=== PATIENT | female | born 1975 | race Caucasian/White ===

== ENCOUNTER 2016-10-03 05:08 | Emergency (ER) | payer MEDICAID ==
[~2016-10-03] VITALS: Ht 160 cm; Wt 89.0 kg
[2016-10-03 05:37] VITALS: Ht 160 cm; Wt 89.0 kg
[2016-10-03 06:36] VITALS: BP 103/61; PULSE 54; RESP 18
--- NOTE | 2016-10-03 07:27 | ERD ---
ER Documentation Chief Complaint Date/Time DATE: 10/03/16 TIME: 07:23 Chief Complaint LUQ pain 20 min 04/29 dx'd w/gallstones HPI 40-year-old female with a history of gallstones presenting with right upper quadrant pain radiating to the right flank. She states she has had gallstone pain in the past that radiates down her right side of her abdomen, but she has never had it radiates to the back. She ate tacos before she went to bed and woke up a few hours later with severe right upper quadrant pain, stabbing, radiating to her back. She did not take any medications prior to arrival. She denies associated fever, chills, nausea, vomiting, chest pain, shortness of breath, dysuria or hematuria. At the time I saw the patient, she states that her pain has now self resolved. She is currently asymptomatic. I asked her if she has been referred to a surgeon yet by her primary care physician. She stated that she has been she does not know which surgeon. ROS All systems reviewed and are negative except as per history of present illness. Allergies Allergies: Coded Allergies: No Known Allergy (Unverified , 04/24/15) PMhx/Soc Medical and Surgical Hx: pt denies Surgical Hx History of Surgery: Yes (TUBAL LIGATION, APPENDECTOMY) Anesthesia Reaction: No Hx Neurological Disorder: No Hx Respiratory Disorders: No Hx Cardiac Disorders: Yes (dm) Hx Psychiatric Problems: No Hx Miscellaneous Medical Probl: Yes (KIDNEY STONES) Hx Alcohol Use: No Hx Substance Use: No Hx Tobacco Use: No Smoking Status: Never smoker FmHx Family History: No diabetes Physical Exam Vitals Vital Signs Date Time Temp Pulse Resp B/P Pulse Ox O2 Delivery O2 Flow Rate FiO2 10/03/16 06:36 54 18 103/61 99 Room Air 10/03/16 05:37 98.1 65 16 149/66 99 Physical Exam Const: Well-appearing, no distress, nontoxic Head: Atraumatic Eyes: Normal Conjunctiva ENT: Normal External Ears, Nose and Mouth. Neck: Full range of motion..~ No meningismus. Resp: Clear to auscultation bilaterally Cardio: Regular rate and rhythm, no murmurs Abd: Soft, non tender, negative Reed sign, non distended. Normal bowel sounds Skin: No petechiae or rashes Back: No midline or flank tenderness Ext: No cyanosis, or edema Neur: Awake and alert Psych: Normal Mood and Affect Procedures/MDM The patient is presenting with signs and symptoms of biliary colic. Her vitals are stable and she is afebrile. I have a low suspicion for an acute surgical abdomen. Currently she is completely nontender and well-appearing. She states this episode consistent with her normal gallbladder pain. I do not think she needs any further testing at this time. I encouraged her to follow-up with her primary care doctor in the morning to find out which surgeon she was referred to and to make an appointment as soon as possible to discuss elective cholecystectomy. Return precautions were discussed at length. Patient was discharged in stable condition. Departure Diagnosis: Primary Impression: Colic, biliary Condition: Stable Patient Instructions: Biliary Colic With Gallstone (Confirmed) Referrals: [facility] YOU HAVE RECEIVED A MEDICAL SCREENING EXAM AND THE RESULTS INDICATE THAT YOU DO NOT HAVE A CONDITION THAT REQUIRES URGENT TREATMENT IN THE EMERGENCY DEPARTMENT. FURTHER EVALUATION AND TREATMENT OF YOUR CONDITION CAN WAIT UNTIL YOU ARE SEEN IN YOUR DOCTORS OFFICE WITHIN THE NEXT 1-2 DAYS. IT IS YOUR RESPONSIBILITY TO MAKE AN APPOINTMENT FOR [facility]- CARE. IF YOU HAVE A PRIMARY DOCTOR --you should call your primary doctor and schedule an appointment IF YOU DO NOT HAVE A PRIMARY DOCTOR YOU CAN CALL OUR PHYSICIAN REFERRAL HOTLINE AT IF YOU CAN NOT AFFORD TO SEE A PHYSICIAN YOU CAN CHOSE FROM THE FOLLOWING [facility] CL[facility]ICS [facility] [address] [facility] [facility] [address] [facility] [address] [facility] [address] [facility]. [facility] [address] [facility]. [facility]. [address] Additional Instructions: Llame a arguello ico maana para saber que cirujano fueron referidos. Volver a la chelsea de emergencias si el dolor no mejora con ibuprofeno o si tiene fiebre y v mitos. JOHN KOHLI MD Oct 03, 2016 07:27
== END 2016-10-03 07:40 | disposition home or self-care (01) ==
LOC: E/R 05:08
DX: K80.50 Calculus of bile duct without cholangitis or cholecystitis without obstruction (principal); E11.9 Type 2 diabetes mellitus without complications
CPT/HCPCS: Z7502; Z7610; 99282

== ENCOUNTER 2016-11-15 23:51 | Emergency (ER) | payer MEDICAID ==
[~2016-11-15] VITALS: Ht 165.1 cm; Wt 88.5 kg
[2016-11-15 23:57] VITALS: Ht 165.1 cm; Wt 88.5 kg
[2016-11-16 00:16] LABS: URINE BLOOD (Dip) POC Negative (NEGATIVE)
--- NOTE | 2016-11-16 00:21 | ERA ---
ER Documentation Chief Complaint Date/Time DATE: 11/16/16 TIME: 00:20 Chief Complaint pt c/o gallstone pain worsening over 3 days HPI The patient is a 40-year-old female, presenting with epigastric and topical abdominal pain intermittently for the last 3 days after eating fatty meals. She had similar symptoms previously from gallbladder attack. She denies fever, chills, neck pain, chest pain, dyspnea. She complained of nausea and vomiting mostly mucus, denies diarrhea, constipation, dysuria, polyuria. She does not smoke, drink Past medical history: Cholelithiasis Past surgical history: Appendectomy, tubal ligation ROS All systems reviewed and are negative except as per history of present illness. Medications Home Meds Active Scripts Ibuprofen* (Motrin*) 600 Mg Tab, 600 MG PO Q6H Y for PAIN AND OR ELEVATED TEMP, #30 TAB Prov:SUNNY TREJO MD 11/16/16 Allergies Allergies: Coded Allergies: No Known Allergy (Unverified , 04/24/15) PMhx/Soc History of Surgery: Yes (TUBAL LIGATION, APPENDECTOMY) Anesthesia Reaction: No Hx Neurological Disorder: No Hx Respiratory Disorders: No Hx Cardiac Disorders: No Hx Psychiatric Problems: No Hx Miscellaneous Medical Probl: Yes (KIDNEY STONES) Hx Alcohol Use: No Hx Substance Use: No Hx Tobacco Use: No Smoking Status: Never smoker Physical Exam Vitals Vital Signs Date Time Temp Pulse Resp B/P Pulse Ox O2 Delivery O2 Flow Rate FiO2 11/16/16 02:45 56 18 125/73 99 Room Air 11/15/16 23:57 98.0 79 24 121/59 98 Physical Exam Const: No acute distress. Head: Atraumatic. Eyes: Normal Conjunctiva. ENT: Normal External Ears, Nose and Mouth. Neck: Full range of motion. No meningismus. Resp: Clear to auscultation bilaterally. Cardio: Regular rate and rhythm, no murmurs. Abd: Soft, non distended, normal bowel sounds, mild epigastric and right upper quadrant tenderness, no right lower quadrant, rigidity, rebound, CVA tenderness Skin: No petechiae or rashes. Back: No midline or flank tenderness. Ext: No cyanosis, or edema. Neur: Awake and alert. No focal deficit Psych: Normal Mood and Affect. Result Diagram: 11/16/163 11/16/16 0033 Results 24 hrs Laboratory Tests Test 11/16/16 00:17 11/16/16 00:33 Bedside Urine pH (LAB) 7.5 Bedside Urine Protein (LAB) Negative Bedside Urine Glucose (UA) Negative Bedside Urine Ketones (LAB) Negative Bedside Urine Blood Negative Bedside Urine Nitrite (LAB) Negative Bedside Urine Leukocyte Esterase (L Negative White Blood Count 10.210^3/ul Red Blood Count 3.7810^6/ul Hemoglobin 10.0g/dl Hematocrit 30.8% Mean Corpuscular Volume 81.5fl Mean Corpuscular Hemoglobin 26.5pg Mean Corpuscular Hemoglobin Concent 32.5g/dl Red Cell Distribution Width 14.3% Platelet Count 69277^3/UL Mean Platelet Volume 11.2fl Neutrophils % 73.7% Lymphocytes % 18.2% Monocytes % 5.4% Eosinophils % 2.2% Basophils % 0.3% Nucleated Red Blood Cells % 0.0/100WBC Neutrophils # 7.510^3/ul Lymphocytes # 1.910^3/ul Monocytes # 0.610^3/ul Eosinophils # 0.210^3/ul Basophils # 0.010^3/ul Nucleated Red Blood Cells # 0.010^3/ul Sodium Level 137mmol/L Potassium Level 3.6mmol/L Chloride Level 102mmol/L Carbon Dioxide Level 27mmol/L Anion Gap 12 Blood Urea Nitrogen 16mg/dl Creatinine 0.80mg/dl Glucose Level 149mg/dl Calcium Level 9.1mg/dl Total Bilirubin 0.1mg/dl Direct Bilirubin 0.00mg/dl Indirect Bilirubin 0.1mg/dl Aspartate Amino Transf (AST/SGOT) 129IU/L Alanine Aminotransferase (ALT/SGPT) 69IU/L Alkaline Phosphatase 94IU/L Total Protein 7.8g/dl Albumin 4.1g/dl Globulin 3.70g/dl Albumin/Globulin Ratio 1.10 Lipase 189U/L Current Medications Medications (Trade) Dose Ordered Sig/Billy Route PRN Reason Start Time Stop Time Status Last Admin Dose Admin Sodium Chloride (NS) 1,000 ml @ 1,000 mls/hr Q1H ONCE IV 11/16/16 01:30 11/16/16 02:29 DC 11/16/16 01:56 Morphine Sulfate (morphine) 4 mg ONCE STAT IV 11/16/16 01:24 11/16/16 01:26 DC 11/16/16 01:56 Ondansetron HCl (Zofran Inj) 4 mg ONCE STAT IV 11/16/16 01:24 11/16/16 01:26 DC 11/16/16 01:56 Pantoprazole (Protonix Iv) 40 mg ONCE ONCE IV 11/16/16 01:30 11/16/16 01:31 DC 11/16/16 01:56 Procedures/MDM MEDICAL MAKING DECISION: The patient is a 40-year-old female, presenting with acute biliary colic. She was treated 1 L normal saline for clinical dehydration , morphine 4 mg IV for pain, Zofran 4 mg for nausea, Protonix 40 mg IV with good response. The differential diagnoses considered include but are not limited to cholelithiasis, cholecystitis, cystitis, pancreatitis, hepatitis, gastritis, peptic ulcer disease, gastric ulcer, appendicitis, diverticulitis, cholangitis, choledocholithiasis, partial small bowel obstruction. Departure Diagnosis: Primary Impression: Colic, biliary Condition: Good Comments She was discharged with Motrin I discussed the findings with the patient. I advised the patient to follow-up with the primary physician in about 1-2 days for referral to see general surgery for elective cholecystectomy, sooner if needed and return if any concern. SUNNY TREJO MD Nov 16, 2016 00:21
[2016-11-16 00:34] LABS: ADD SCAN DIFF NO
[2016-11-16 00:36] LABS: BASOPHILS % 0.3 % (0.0-2.0); EOSINOPHILS # 0.2 10^3/ul (0.0-0.5); EOSINOPHILS % 2.2 % (0.0-7.0); HEMATOCRIT 30.8 % (37.0-47.0); LYMPHOCYTES # 1.9 10^3/ul (0.8-2.9); LYMPHOCYTES % 18.2 % (15.0-51.0); MEAN CORPUSCULAR HEMOGLOBIN 26.5 pg (29.0-33.0); MEAN CORPUSCULAR HGB CONC 32.5 g/dl (32.0-37.0); MEAN CORPUSCULAR VOLUME 81.5 fl (82.0-101.0); MEAN PLATELET VOLUME 11.2 fl (7.4-10.4); MONOCYTE # 0.6 10^3/ul (0.3-0.9); MONOCYTES % 5.4 % (0.0-11.0); NEUTROPHIL # 7.5 10^3/ul (1.6-7.5); NEUTROPHILS % 73.7 % (39.0-77.0); PLATELET COUNT 266 10^3/UL (140-415); RED BLOOD COUNT 3.78 10^6/ul (4.20-5.40); RED CELL DISTRIBUTION WIDTH 14.3 % (11.5-14.5); WHITE BLOOD COUNT 10.2 10^3/ul (4.8-10.8)
[2016-11-16 00:52] LABS: ALBUMIN 4.1 g/dl (3.3-4.9); ALBUMIN/GLOBULIN RATIO 1.1; BILIRUBIN,INDIRECT 0.1 mg/dl (0-1.1); BILIRUBIN,TOTAL 0.1 mg/dl (0.2-1.3); CALCIUM 9.1 mg/dl (8.4-10.2); CREATININE 0.8 mg/dl (0.44-1.00); POTASSIUM 3.6 mmol/L (3.5-5.1); TOTAL PROTEIN 7.8 g/dl (6.1-8.1)
[2016-11-16] MEDS ORDERED: morphine 4 MG/ML VIAL IV STA (01:24)
[2016-11-16] MEDS ORDERED: ONDANSETRON 4 MG INJ IV STA (01:24)
[2016-11-16] MEDS ORDERED: PANTOPRAZOLE 40 MG INJ IV ONE (01:30)
[2016-11-16] MEDS ORDERED: SOD CHLORIDE 0.9% 1,000 ML IV ONE (01:30)
[2016-11-16] MEDS ORDERED: IBUP-1542 PO (02:33)
[2016-11-16 02:45] VITALS: BP 125/73; PULSE 56; RESP 18
== END 2016-11-16 02:45 | disposition home or self-care (01) ==
LOC: E/R 23:51
DX: K80.51 Calculus of bile duct without cholangitis or cholecystitis with obstruction (principal); R11.2 Nausea with vomiting, unspecified; Z90.89 Acquired absence of other organs
CPT/HCPCS: 80053; 81003; 83690; 85025; C9113; J2270; J2405; J7030; 36415; 96374; 96375

== ENCOUNTER 2017-01-22 07:56 | Inpatient (IN) | payer MEDICAID ==
[~2017-01-22] VITALS: Ht 154.9 cm; Wt 90.7 kg
[~2017-01-22 07:56] MED LIST: IBUP-1542 PO
[2017-01-22] MEDS ORDERED: morphine 4 MG/ML VIAL IV STA (08:15)
[2017-01-22] MEDS ORDERED: ONDANSETRON 4 MG INJ IV STA (08:15)
[2017-01-22] MEDS ORDERED: SOD CHLORIDE 0.9% 1,000 ML IV STA (08:15)
--- NOTE | 2017-01-22 08:32 | ERD ---
ER Documentation Chief Complaint Date/Time DATE: 01/22/17 TIME: 08:28 Chief Complaint ap, hx gallstones HPI Patient is a 41-year-old female with a past medical history of gallstones, biliary colic, s/p appendectomy who presents to the emergency department with right upper quadrant pain which started last night after dinner. Patient describes the pain to be sharp and crampy in nature. Patient reports eating numerous fatty foods for dinner. Patient does report chills however she denies any fevers. Patient reports nausea and vomiting. Patient denies any dysuria, hematuria or vaginal bleeding. Patient states she has not seen a general surgeon yet. ROS All systems reviewed and are negative except as per history of present illness. Medications Home Meds Active Scripts Ibuprofen* (Motrin*) 600 Mg Tab, 600 MG PO Q6H Y for PAIN AND OR ELEVATED TEMP, #30 TAB Prov:SUNNY TREJO MD 11/16/16 Allergies Allergies: Coded Allergies: No Known Allergy (Unverified , 04/24/15) PMhx/Soc History of Surgery: Yes (TUBAL LIGATION, APPENDECTOMY) Anesthesia Reaction: No Hx Neurological Disorder: No Hx Respiratory Disorders: No Hx Cardiac Disorders: No Hx Psychiatric Problems: No Hx Miscellaneous Medical Probl: Yes (KIDNEY STONES) Hx Alcohol Use: No Hx Substance Use: No Hx Tobacco Use: No FmHx Family History: No diabetes Physical Exam Vitals Vital Signs Date Time Temp Pulse Resp B/P Pulse Ox O2 Delivery O2 Flow Rate FiO2 01/22/17 07:58 98.2 70 18 136/76 99 Physical Exam GENERAL: Well-developed, well-nourished female. Appears in no acute distress. HEAD: Normocephalic, atraumatic. EYES: Pupils are equally reactive bilaterally. EOMs grossly intact. No conjunctival erythema. ENT: Moist mucous membranes. No uvula deviation. No kissing tonsils. NECK: Supple. No meningismus. Normal range of motion of the neck. LUNG: Clear to auscultation bilaterally. No rhonchi, wheezing, rales or coarse breath sounds. HEART: Regular rate and rhythm. No murmurs, rubs or gallops. ABDOMEN: Soft and nondistended. Tender to palpation in the right upper quadrant. Positive bowel sounds in all four quadrants. No rebound tenderness, no guarding. (-) McBurney's point tenderness. No CVA tenderness. EXTREMITIES: Equal pulses bilaterally. No peripheral clubbing, cyanosis or edema. No unilateral leg swelling. NEUROLOGIC: Alert and oriented. Moving all four extremities without any difficulty. Normal speech. Steady gait. SKIN: Normal color. Warm and dry. No rashes or lesions. Result Diagram: 01/22/1727 01/22/17 0827 Results 24 hrs Laboratory Tests Test 01/22/17 08:27 White Blood Count 9.910^3/ul Red Blood Count 4.0210^6/ul Hemoglobin 10.5g/dl Hematocrit 32.8% Mean Corpuscular Volume 81.6fl Mean Corpuscular Hemoglobin 26.1pg Mean Corpuscular Hemoglobin Concent 32.0g/dl Red Cell Distribution Width 15.9% Platelet Count 97225^3/UL Mean Platelet Volume 11.7fl Neutrophils % 75.1% Lymphocytes % 14.8% Monocytes % 7.7% Eosinophils % 1.7% Basophils % 0.4% Nucleated Red Blood Cells % 0.0/100WBC Neutrophils # 7.410^3/ul Lymphocytes # 1.510^3/ul Monocytes # 0.810^3/ul Eosinophils # 0.210^3/ul Basophils # 0.010^3/ul Nucleated Red Blood Cells # 0.010^3/ul Urine Color GILL Urine Clarity SLIGHTLY CLOUDY Urine pH 6.0 Urine Specific [place] 1.023 Urine Ketones NEGATIVEmg/dL Urine Nitrite NEGATIVEmg/dL Urine Bilirubin NEGATIVEmg/dL Urine Urobilinogen NEGATIVEmg/dL Urine Leukocyte Esterase NEGATIVELeu/ul Urine Microscopic RBC 1/HPF Urine Microscopic WBC 1/HPF Urine Squamous Epithelial Cells FEW/HPF Urine Amorphous Crystals FEW/HPF Urine Hemoglobin NEGATIVEmg/dL Urine Glucose NEGATIVEmg/dL Urine Total Protein NEGATIVEmg/dl Sodium Level 140mmol/L Potassium Level 4.2mmol/L Chloride Level 102mmol/L Carbon Dioxide Level 24mmol/L Anion Gap 18 Blood Urea Nitrogen 18mg/dl Creatinine 0.75mg/dl Glucose Level 109mg/dl Calcium Level 9.2mg/dl Total Bilirubin 0.3mg/dl Direct Bilirubin 0.00mg/dl Indirect Bilirubin 0.3mg/dl Aspartate Amino Transf (AST/SGOT) 839IU/L Alanine Aminotransferase (ALT/SGPT) 507IU/L Alkaline Phosphatase 152IU/L Total Protein 8.2g/dl Albumin 4.6g/dl Globulin 3.60g/dl Albumin/Globulin Ratio 1.27 Lipase 89346L/L Beta HCG, Quantitative < 2.4mIU/ml Current Medications Medications (Trade) Dose Ordered Sig/Billy Route PRN Reason Start Time Stop Time Status Last Admin Dose Admin Sodium Chloride (NS) 1,000 ml @ 1,000 mls/hr Q1H STAT IV 01/22/17 08:15 01/22/17 09:14 DC 01/22/17 08:25 Morphine Sulfate (morphine) 4 mg ONCE STAT IV 01/22/17 08:15 01/22/17 08:17 DC 01/22/17 08:24 Ondansetron HCl 4 mg 4 mg ONCE STAT IV 01/22/17 08:15 01/22/17 08:18 DC 01/22/17 08:25 Ampicillin Sodium/ Sulbactam Sodium (Unasyn 3gm/NS (Pmx)) 100 ml @ 100 mls/hr ONCE ONCE IVPB 01/22/17 11:30 01/22/17 12:29 DC 01/22/17 11:39 Morphine Sulfate (morphine) 2 mg ONCE ONCE IV 01/22/17 13:30 01/22/17 13:31 DC 01/22/17 13:22 Procedures/MDM ED COURSE: The patient was stable throughout ED course. I kept the patient and/or family informed of laboratory and diagnostic imaging results throughout the ED course. DIAGNOSTIC IMAGING: Read by radiologist. DIAGNOSTIC IMAGING REPORT Patient: PAULINO NEWELL : 1975 Age: 41 Sex: F MR #: [id number] DOS: 01/22/17 0815 Ordering MD: WANDA SARAVIA PA-C Location: [facility] Room/Bed: PROCEDURE: US Abdomen (right upper quadrant). CLINICAL INDICATION: Abdominal pain TECHNIQUE: Multiple real-time longitudinal and transverse images of the right upper quadrant of the abdomen were acquired utilizing a curved array transducer. Images were reviewed on a high-resolution PACS workstation. COMPARISON: 03/17/2016 FINDINGS: The liver is normal in size and echogenicity without focal mass or intrahepatic biliary dilatation. The 2 cm is present dependently within the gallbladder. There is no pericholecystic fluid or gallbladder wall thickening. No intrahepatic biliary dilatation is seen. The common bile duct measures 7 mm in maximal dimension, previously 4 mm. The visualized portions of the pancreas are unremarkable with obscuration of the tail of the pancreas. No free fluid is identified. The right kidney measures 10.9 cm. There is no evidence of hydronephrosis, mass , or renal calculi. No perinephric collection is seen. IMPRESSION: 1. Cholelithiasis without evidence of cholecystitis. 2. Mildly prominent common bile duct which measures up to 7 mm in diameter, previously 4 mm. Correlate with bilirubin levels. If there is concern for cholestasis, consider MRCP. RPTAT: JJ .Juan David Funes MD, MD Date Time Electronically viewed and signed by .Juan David Funes MD, on 01/22/2017 10:51 .A/ CC: WANDA SARAVIA PA-C MEDICATIONS GIVEN: IV fluids, Zofran, morphine, Unasyn Patient tolerated medication well with no adverse reactions. Patient reported improvement in pain. MEDICAL DECISION MAKING: This is a 41-year-old female with a history of gallstones presents to the ED with right upper quadrant pain 1 day. Patient did report eating numerous fatty foods last night. Vital signs were reviewed. Patient is afebrile. WBC count 9.9. Hemoglobin level was noted to be 10.5. No signs of severe anemia. Patient's AST noted to be 389, ALT 507, alk phos 152. Patient's lipase was [address]. RUQ US showed 1. Cholelithiasis without evidence of cholecystitis. 2. Mildly prominent common bile duct which measures up to 7 mm in diameter, previously 4 mm. Correlate with bilirubin levels. If there is concern for cholestasis, consider MRCP. UA showed no evidence of acute infection or hematuria. Low suspicion for UTI, pyelonephritis or nephrolithiasis. Urine test was negative. I discussed the patient's findings with my supervising physician Dr. Benitez, who agrees that the patient's presentation is most consistent with choledocholithiasis. Patient was given antibiotics in the emergency department. Patient will be admitted for further workup and management. Departure Diagnosis: Primary Impression: Choledocholithiasis Condition: Fair Referrals: [facility] YOU HAVE RECEIVED A MEDICAL SCREENING EXAM AND THE RESULTS INDICATE THAT YOU DO NOT HAVE A CONDITION THAT REQUIRES URGENT TREATMENT IN THE EMERGENCY DEPARTMENT. FURTHER EVALUATION AND TREATMENT OF YOUR CONDITION CAN WAIT UNTIL YOU ARE SEEN IN YOUR DOCTORS OFFICE WITHIN THE NEXT 1-2 DAYS. IT IS YOUR RESPONSIBILITY TO MAKE AN APPOINTMENT FOR FOLOW-UP CARE. IF YOU HAVE A PRIMARY DOCTOR --you should call your primary doctor and schedule an appointment IF YOU DO NOT HAVE A PRIMARY DOCTOR YOU CAN CALL OUR PHYSICIAN REFERRAL HOTLINE AT IF YOU CAN NOT AFFORD TO SEE A PHYSICIAN YOU CAN CHOSE FROM THE FOLLOWING [facility] [address] [facility] [address] [facility] [address] [facility] [address] [facility] [address] [facility] [facility] [address] [facility] [facility] YOU HAVE RECEIVED A MEDICAL SCREENING EXAM AND THE RESULTS INDICATE THAT YOU DO NOT HAVE A CONDITION THAT REQUIRES URGENT TREATMENT IN THE EMERGENCY DEPARTMENT. FURTHER EVALUATION AND TREATMENT OF YOUR CONDITION CAN WAIT UNTIL YOU ARE SEEN IN YOUR DOCTORS OFFICE WITHIN THE NEXT 1-2 DAYS. IT IS YOUR RESPONSIBILITY TO MAKE AN APPOINTMENT FOR FOLOW-UP CARE. IF YOU HAVE A PRIMARY DOCTOR --you should call your primary doctor and schedule and appointment IF YOU DO NOT HAVE A PRIMARY DOCTOR YOU CAN CALL OUR PHYSICIAN REFERRAL HOTLINE AT . IF YOU CAN NOT AFFORD TO SEE A PHYSICIAN YOU CAN CHOSE FROM THE FOLLOWING [facility] INSTITUTIONS: [facility] [address] [place] [address] [facility] [address] [place] [address] [facility] [address] [place] [address] Additional Instructions: Patient will be admitted for further workup and management. WANDA SARAVIA PA-C Jan 22, 2017 08:31 Additional Instructions: Call your primary care doctor TOMORROW for an appointment during the next 1-2 days.See the doctor sooner or return here if your condition worsens before your appointment time. Obtain a referral to see a general surgeon. See referral information. WANDA SARAVIA PA-C Jan 22, 2017 08:31
[2017-01-22 08:49] LABS: ADD SCAN DIFF NO
[2017-01-22 08:50] LABS: BASOPHILS % 0.4 % (0.0-2.0); EOSINOPHILS # 0.2 10^3/ul (0.0-0.5); EOSINOPHILS % 1.7 % (0.0-7.0); HEMATOCRIT 32.8 % (37.0-47.0); HEMOGLOBIN 10.5 g/dl (12.0-16.0); LYMPHOCYTES # 1.5 10^3/ul (0.8-2.9); LYMPHOCYTES % 14.8 % (15.0-51.0); MEAN CORPUSCULAR HEMOGLOBIN 26.1 pg (29.0-33.0); MEAN CORPUSCULAR VOLUME 81.6 fl (82.0-101.0); MEAN PLATELET VOLUME 11.7 fl (7.4-10.4); MONOCYTE # 0.8 10^3/ul (0.3-0.9); MONOCYTES % 7.7 % (0.0-11.0); NEUTROPHIL # 7.4 10^3/ul (1.6-7.5); NEUTROPHILS % 75.1 % (39.0-77.0); PLATELET COUNT 256 10^3/UL (140-415); RED BLOOD COUNT 4.02 10^6/ul (4.20-5.40); RED CELL DISTRIBUTION WIDTH 15.9 % (11.5-14.5); WHITE BLOOD COUNT 9.9 10^3/ul (4.8-10.8)
[2017-01-22 09:01] LABS: ADD UMIC NO; UR AMORPHOUS CRYSTAL FEW /HPF (NONE SEEN); UR ASCORBIC ACID 40 mg/dL (NEGATIVE); UR BILIRUBIN (Dip) NEGATIVE (NEGATIVE); UR BLOOD (Dip) NEGATIVE (NEGATIVE); UR CLARITY SLIGHTLY CLOUDY (CLEAR); UR COLOR AMBER (YELLOW); UR GLUCOSE (Dip) NEGATIVE (NEGATIVE); UR KETONES (Dip) NEGATIVE (NEGATIVE); UR LEUKOCYTE ESTERASE (Dip) NEGATIVE Leu/ul (NEGATIVE); UR NITRITE (Dip) NEGATIVE (NEGATIVE); UR RBC 1 /HPF (0-5); UR SPECIFIC GRAVITY (Dip) 1.023 (1.003-1.030); UR SQUAMOUS EPITHELIAL CELL FEW /HPF (FEW); UR TOTAL PROTEIN (Dip) NEGATIVE (NEGATIVE); UR UROBILINOGEN (Dip) NEGATIVE (NEGATIVE)
[2017-01-22 09:20] LABS: ALBUMIN 4.6 g/dl (3.3-4.9); ALBUMIN/GLOBULIN RATIO 1.27; BILIRUBIN,INDIRECT 0.3 mg/dl (0-1.1); BILIRUBIN,TOTAL 0.3 mg/dl (0.2-1.3); CALCIUM 9.2 mg/dl (8.4-10.2); CREATININE 0.75 mg/dl (0.44-1.00); POTASSIUM 4.2 mmol/L (3.5-5.1); TOTAL PROTEIN 8.2 g/dl (6.1-8.1)
--- NOTE | 2017-01-22 10:51 | RADRPT ---
PROCEDURE: US Abdomen (right upper quadrant). CLINICAL INDICATION: Abdominal pain TECHNIQUE: Multiple real-time longitudinal and transverse images of the right upper quadrant of th e abdomen were acquired utilizing a curved array transducer. Images were reviewed on a high-resoluti on PACS workstation. COMPARISON: 03/17/2016 FINDINGS: The liver is normal in size and echogenicity without focal mass or intrahepatic biliary dilatation. The 2 cm is present dependently within the gallbladder. There is no pericholecystic fluid or gallb ladder wall thickening. No intrahepatic biliary dilatation is seen. The common bile duct measures 7 mm in maximal dimension, previously 4 mm. The visualized portions of the pancreas are unremarkabl e with obscuration of the tail of the pancreas. No free fluid is identified. The right kidney measures 10.9 cm. There is no evidence of hydronephrosis, mass, or renal calculi. No perinephric collection is seen. IMPRESSION: 1. Cholelithiasis without evidence of cholecystitis. 2. Mildly prominent common bile duct which measures up to 7 mm in diameter, previously 4 mm. Corre late with bilirubin levels. If there is concern for cholestasis, consider MRCP. RPTAT: JJ .Juan David Funes MD, Date Time Electronically viewed and signed by .Juan David Funes MD, on 01/22/2017 10:51 .A/
[2017-01-22] MEDS ORDERED: AMPICILLIN/SULB 3 GM/NS (PMX) 100 ML IVPB ONE (11:30)
[2017-01-22] MEDS ORDERED: morphine 2 MG INJ IV ONE (13:30)
--- NOTE | 2017-01-22 13:58 | QN ---
Documentation Comment My independent concise history is abdominal pain. My pertinent physical exam findings are abdominal pain. The plan is admission to Dr. Llanos and consultation with Dr. Waite from general surgery. JAYMIE RICCI MD Jan 22, 2017 13:58
[2017-01-22] MEDS ORDERED: ACETAMINOPHEN 325 MG TAB PO PRN ×2 (14:00→15:30)
[2017-01-22] MEDS ORDERED: ONDANSETRON 4 MG INJ IV PRN ×2 (14:00→15:30)
[2017-01-22 14:20] VITALS: TEMP 97.6
[2017-01-22 15:08] VITALS: BP 115/78; PULSE 55; RESP 16
[2017-01-22 15:18] VITALS: Ht 154.9 cm; Wt 90.7 kg
[2017-01-22] MEDS ORDERED: SODIUM CHLORIDE 0.9% 1L BAG IV SCH (15:30)
[2017-01-22] MEDS ORDERED: ACETAMINOPHEN 650 MG SUPP PR PRN (15:30)
[2017-01-22] MEDS ORDERED: NACL 0.9% 3 ML SYG IV SCH (15:30)
[2017-01-22] MEDS: morphine 4 MG/ML VIAL IV PRN ×2 (15:55→20:59)
[2017-01-22] MEDS: PIPER-TAZO 3.375 GM IV (PMX) 100 ML IVPB SCH ×2 (15:55→22:17)
[2017-01-22] MEDS: FAMOTIDINE 20 MG INJ IV SCH ×2 (16:08→22:17)
--- NOTE | 2017-01-22 17:02 | HP ---
Date/Time of Note Date/Time of Note DATE: 01/22/17 TIME: 16:56 Assessment/Plan VTE Prophylaxis VTE Prophylaxis Intervention: contraindicated Assessment/Plan Chief Complaint/Hosp Course A/P 1. Acute pancreatitis; stable cont npo. Zosyn/MRCP. surgical eval. May need GI. 2. Acute symptomatic cholelithiasis 3. Anemia 4. Metabolic syndrome Problems: HPI/ROS Admit Date/Time Admit Date/Time Jan 22, 2017 at 13:57 Hx of Present Illness 41-year-old female with abdominal pain. Apparently sharp sudden onset yesterday after dinner. Right upper quadrant, ~ radiating to back. +N/V. ~ Fever. No Dysuria/hematria. ER- vss PMH/Family/Social Past Surgical History Appendectomy Tubal ligation Family History Significant Family History: cancer (father had throat cancer.) Social History works at [employer] Alcohol Use: none Smoking Status: Never smoker Exam/Review of Systems Vital Signs Vitals Vital Signs Date Time Temp Pulse Resp B/P Pulse Ox O2 Delivery O2 Flow Rate FiO2 01/22/17 15:08 97.5 55 16 115/78 98 Room Air Exam Exam ROS N -ve Cor -ve Pul -ve GI + N/V/ Abd pain -ve MS- ve ENDO -ve Psy -ve H -ve no pallor/ icterus/ adenopathy reg s1s2 reg; no m/r/g ctab bs diminished; mild tender; min distended; no r r g. overweight no edema Labs Result Diagram: 01/22/1782601/22/17826 Medications Medications Current Medications Sodium Chloride (NS) 1,000 ml @ 250 mls/hr Q4H IV ; Start 01/22/17 at 16:30 Ondansetron HCl (Zofran Inj) 4 mg Q6H PRN IV NAUSEA AND/OR VOMITING Last administered on 01/22/17t 16:08; Admin Dose 4 MG; Start 01/22/17 at 15:30 Acetaminophen (Tylenol Tab) 650 mg Q6H PRN PO PAIN LEVEL 1-3 OR FEVER; Start at 15:30 Acetaminophen (Tylenol Supp) 650 mg Q6H PRN AK PAIN LEVEL 1-3 OR FEVER; Start 01/22/17 at 15:30 Morphine Sulfate (morphine) 2 mg Q4H PRN IV SEVERE PAIN LEVEL 7-10 Last administered on 01/22/17 15:55; Admin Dose 2 MG; Start 01/22/17 at 15:15 Famotidine 20 mg 20 mg Q12 IV Last administered on 01/22/17 16:08; Admin Dose 20 MG; Start 01/22/17 at 15:30 Piperacillin Sod/ Tazobactam Sod (Zosyn 3.375gm/ 100 ml (Pmx)) 100 ml @ 200 mls /hr Q8 IVPB Last administered on 01/22/17 15:55; Admin Dose 200 MLS/HR; Start 01/22/17 at 16:00 JESSICA GATES MD Jan 22, 2017 17:02
--- NOTE | 2017-01-22 17:42 | RADRPT ---
PROCEDURE: MRI abdomen / MRCP CLINICAL INDICATION: Abdominal pain. Cholelithiasis with suspicion of choledocholithiasis TECHNIQUE: MRI of the abdomen is performed without contrast utilizing axial T2 and T2 fat suppress ion sequences as well as in and out of phase imaging. The MRCP is performed and the MIP series subm itted for review. COMPARISON: Gallbladder ultrasound 01/22/2017 FINDINGS: Visualized lower thorax: There is no evidence for consolidation or pleural effusion. Liver: Borderline hepatomegaly is noted the maximum dimension of the liver 19.3 cm but with preserv ed liver contour and signal intensity, no masses are present. Gallbladder: Gallbladder hydrops is noted with wall thickening of 4 mm and pericholecystic fluid. Ovoid filling defect in the dependent lumen measures approximately 2.2 cm consistent with cholelithi asis correlate with the ultrasound findings, the largest stone near the gallbladder neck. The cysti c duct appears dilated. Common bile duct: There is no filling defect to suggest choledocholithiasis. The caliber of the du ct is normal estimated at 5 mm. The MRCP shows no evidence for intrahepatic or extrahepatic ductal dilatation, the ductal system is smoothly aligned with no evidence for filling defect. Pancreas: Inflammatory phlegmon within the left anterior pararenal space cannot exclude associated pancreatitis. There is no evidence of obvious pancreatic mass or ductal dilatation. Spleen: Normal in size with no masses evident. Adrenal glands: Unremarkable bilaterally. Kidneys: Normal in size with no evidence for masses or hydronephrosis. Left greater than right ante rior pararenal space phlegmon is probably related to pancreatitis. There is a trace amount of perih epatic and perisplenic ascites. Stomach, visualized small bowel and visualized large intestine: No abnormalities are demonstrated. Abdominal aorta: Normal in caliber estimated at 2 cm. Inferior vena cava: Normal. Vertebral bodies and osseous structures: Unremarkable. Musculature and soft tissues: Unremarkable. RPTAT:HJJR IMPRESSION: 1. Cholelithiasis with gallbladder wall thickening and gallbladder hydrops concerning for cholecyst itis but with a normal common bile duct and MRCP, no evidence of choledocholithiasis. 2. Peripancreatic phlegmon in the left greater than right anterior pararenal space raises concern f or pancreatitis and serologic correlation is recommended. Elvis Garcia Physician Date Time Electronically viewed and signed by Elvis Garcia Physician on 01/22/2017 17:42 JR/
[2017-01-22] MEDS ORDERED: PIPER-TAZO 3.375 GM IV (PMX) 100 ML IVPB SCH (18:00)
[2017-01-22 20:10] VITALS: BP 127/60; RESP 18
[2017-01-22] MEDS: SOD CHLORIDE 0.9% 1,000 ML IV SCH ×2 (21:00→23:31)
[2017-01-23 02:14] VITALS: BP 118/64; RESP 19
[2017-01-23 03:00] VITALS: PULSE 62
[2017-01-23] MEDS: SOD CHLORIDE 0.9% 1,000 ML IV SCH ×5 (03:36→21:20)
[2017-01-23] MEDS: morphine 4 MG/ML VIAL IV PRN ×2 (03:42→08:15)
[2017-01-23] MEDS: PIPER-TAZO 3.375 GM IV (PMX) 100 ML IVPB SCH ×3 (05:17→21:18)
[2017-01-23 05:36] LABS: ADD SCAN DIFF NO; HAAIG REFLEX REFLEX FILED
[2017-01-23 05:39] LABS: BASOPHILS % 0.3 % (0.0-2.0); EOSINOPHILS # 0.1 10^3/ul (0.0-0.5); EOSINOPHILS % 0.6 % (0.0-7.0); HEMATOCRIT 30.3 % (37.0-47.0); HEMOGLOBIN 9.5 g/dl (12.0-16.0); LYMPHOCYTES # 1.4 10^3/ul (0.8-2.9); LYMPHOCYTES % 12.5 % (15.0-51.0); MEAN CORPUSCULAR HEMOGLOBIN 25.7 pg (29.0-33.0); MEAN CORPUSCULAR HGB CONC 31.4 g/dl (32.0-37.0); MEAN CORPUSCULAR VOLUME 81.9 fl (82.0-101.0); MEAN PLATELET VOLUME 11.9 fl (7.4-10.4); MONOCYTE # 0.6 10^3/ul (0.3-0.9); NEUTROPHIL # 9.3 10^3/ul (1.6-7.5); NEUTROPHILS % 81.2 % (39.0-77.0); PLATELET COUNT 232 10^3/UL (140-415); RED CELL DISTRIBUTION WIDTH 16.3 % (11.5-14.5); WHITE BLOOD COUNT 11.4 10^3/ul (4.8-10.8)
[2017-01-23 05:50] LABS: INR 1.03; PROTIME 13.5 Sec (12.2-14.2); PT RATIO 1.1
[2017-01-23 06:05] LABS: LACTATE DEHYDROGENASE 1099 IU/L (313-618)
[2017-01-23 06:05] LABS: ALBUMIN 3.8 g/dl (3.3-4.9); ALBUMIN/GLOBULIN RATIO 1.26; BILIRUBIN,INDIRECT 0.6 mg/dl (0-1.1); BILIRUBIN,TOTAL 0.6 mg/dl (0.2-1.3); CALCIUM 8.1 mg/dl (8.4-10.2); CHOL/HDL RATIO 2.6 RATIO; CREATININE 0.55 mg/dl (0.44-1.00); PHOSPHORUS 2.8 mg/dl (2.5-4.9); POTASSIUM 3.7 mmol/L (3.5-5.1); TOTAL PROTEIN 6.8 g/dl (6.1-8.1)
[2017-01-23 06:32] LABS: THYROID STIMULATING HORMONE 0.43 MIU/L (0.465-4.680)
[2017-01-23 06:46] LABS: IRON 66 ug/dl (35-150)
[2017-01-23 06:51] LABS: HEPATITIS B CORE ANTIBODY NEGATIVE (NEGATIVE)
[2017-01-23 06:56] LABS: TOTAL IRON BINDING CAPACITY 340 ug/dl (241-421)
[2017-01-23 08:12] VITALS: BP 122/60; RESP 20
[2017-01-23] MEDS: FAMOTIDINE 20 MG INJ IV SCH ×2 (08:15→21:17)
--- NOTE | 2017-01-23 11:12 | RADRPT ---
Vent Rate: 53 bpm RR Interval: 0 msec [place] Interval: 148 msec QRS Duration: 116 msec QT Interval: 460 msec QTC Interval: 431 msec P-R-T [place]: 62 - 31 - 32 degrees Sinus bradycardia with sinus arrhythmia Incomplete right bundle branch block Borderline ECG Electronically Signed By: Darío Davila [id number]
[2017-01-23 14:31] VITALS: BP 108/59; RESP 18
--- NOTE | 2017-01-23 15:32 | PN ---
Date/Time of Note Date/Time of Note DATE: 01/23/17 TIME: 15:30 Assessment/Plan VTE Prophylaxis VTE Prophylaxis Intervention: LMWH Lines/Catheters IV Catheter Type (from [facility]): Peripheral IV Assessment/Plan Chief Complaint/Hosp Course A/P 1. Acute pancreatitis; stable cont npo. Zosyn/MRCP. surgical eval. 2. Acute symptomatic cholelithiasis/cholecystitis 3. Anemia 4. Metabolic syndrome 5. Incomplete rbbb. No evidence of syncope/ symptoms; incidental. May proceed forward to surgery. 6. Subclinical hyperthyroidism. Problems: Exam/Review of Systems Vital Signs Vitals Vital Signs Date Time Temp Pulse Resp B/P Pulse Ox O2 Delivery O2 Flow Rate FiO2 01/23/17 14:31 97.9 18 18 108/59 96 01/22/17 15:08 Room Air Intake and Output 01/22/17 01/22/17 01/23/17 15:00 23:00 07:00 Intake Total 200 ml 1725 ml Balance 200 ml 1725 ml Results Result Diagram: 01/23/17 0515 01/23/17 0525 Results 24 hrs Laboratory Tests Test 01/23/17 05:15 01/23/17 05:25 White Blood Count 11.4 H Red Blood Count 3.70 L Hemoglobin 9.5 L Hematocrit 30.3 L Mean Corpuscular Volume 81.9 L Mean Corpuscular Hemoglobin 25.7 L Mean Corpuscular Hemoglobin Concent 31.4 L Red Cell Distribution Width 16.3 H Platelet Count 232 Mean Platelet Volume 11.9 H Neutrophils % 81.2 H Lymphocytes % 12.5 L Monocytes % 5.0 Eosinophils % 0.6 Basophils % 0.3 Nucleated Red Blood Cells % 0.0 Neutrophils # 9.3 H Lymphocytes # 1.4 Monocytes # 0.6 Eosinophils # 0.1 Basophils # 0.0 Nucleated Red Blood Cells # 0.0 Prothrombin Time 13.5 Prothrombin Time Ratio 1.1 INR International Normalized Ratio 1.03 Hemoglobin A1c 5.8 Iron Level 66 Total Iron Binding Capacity 340 Percent Iron Saturation 19 L Lactate Dehydrogenase 1099 H Lipase 48611 H Serum HCG, Qualitative NEGATIVE Hepatitis B Surface Antigen NEGATIVE Hepatitis B Core Total Antibody NEGATIVE Hepatitis C Antibody NEGATIVE Sodium Level 139 Potassium Level 3.7 Chloride Level 105 Carbon Dioxide Level 23 Anion Gap 15 Blood Urea Nitrogen 13 Creatinine 0.55 Glucose Level 116 Calcium Level 8.1 L Phosphorus Level 2.8 Magnesium Level 2.0 Total Bilirubin 0.6 Direct Bilirubin 0.00 Indirect Bilirubin 0.6 Aspartate Amino Transf (AST/SGOT) 422 H Alanine Aminotransferase (ALT/SGPT) 442 H Alkaline Phosphatase 144 H Total Protein 6.8 # Albumin 3.8 Globulin 3.00 Albumin/Globulin Ratio 1.26 Triglycerides Level 64 Cholesterol Level 170 LDL Cholesterol, Calculated 92 HDL Cholesterol 65 Cholesterol/HDL Ratio 2.6 Thyroid Stimulating Hormone (TSH) 0.430 L Medications Medications Current Medications Sodium Chloride (NS) 1,000 ml @ 250 mls/hr Q4H IV Last administered on 14:59; Admin Dose 250 MLS/HR; Start 01/22/17 at 16:30 Ondansetron HCl (Zofran Inj) 4 mg Q6H PRN IV NAUSEA AND/OR VOMITING Last administered on 01/22/17 16:08; Admin Dose 4 MG; Start 01/22/17 at 15:30 Acetaminophen (Tylenol Tab) 650 mg Q6H PRN PO PAIN LEVEL 1-3 OR FEVER; Start at 15:30 Acetaminophen (Tylenol Supp) 650 mg Q6H PRN [place] PAIN LEVEL 1-3 OR FEVER; Start 01/22/17 at 15:30 Morphine Sulfate (morphine) 2 mg Q4H PRN IV SEVERE PAIN LEVEL 7-10 Last administered on 01/23/17 08:15; Admin Dose 2 MG; Start 01/22/17 at 15:15 Famotidine 20 mg 20 mg Q12 IV Last administered on 01/23/17 08:15; Admin Dose 20 MG; Start 01/22/17 at 15:30 Piperacillin Sod/ Tazobactam Sod (Zosyn 3.375gm/ 100 ml (Pmx)) 100 ml @ 200 mls /hr Q8 IVPB Last administered on 01/23/17 13:33; Admin Dose 200 MLS/HR; Start 01/22/17 at 16:00 JESSICA GATES MD Jan 23, 2017 15:32
--- NOTE | 2017-01-23 18:46 | CONS ---
Date/Time of Note Date/Time of Note DATE: 01/23/17 TIME: 18:45 Assessment/Plan Assessment/Plan Additional Assessment/Plan [facility] INPATIENT CONSULTATION NOTE DATE OF SERVICE: 01/23/2017 PLACE OF SERVICE: [facility], floor ASSESSMENT AND PLAN: A very-pleasant 41-year-old lady with a few comorbidities including BMI 37.8, presenting with gallstone pancreatitis. She appears to be clinically improved since admission and does not have evidence for choledocholithiasis. She can benefit from further inpatient supportive care for her pancreatitis, and then I also recommended laparoscopic, possible open cholecystectomy towards the end of this admission as a risk reduction strategy to bring her wrist down from 30% in the next 6 months to near 0. I described the operation in detail with the help of diagrams and distributed printed material to the patient and family for further education. I described the risks , benefits, and alternatives with the patient and family and obtained her consent for the operation. Answered all questions. With above assessment, I've recommended the followin. Continue in-house care 2. Intravenous fluids 3. Treat symptoms 4. Keep n.p.o. for now 5. Check labs in a.m. 6. Increase activity 7. Increase incentive spirometry 8. Possible need for gastroneurology consultation 9. Laparoscopic, possible open, cholecystectomy towards the end of this admission Thank you very much for having me involved in the care of this very pleasant lady and her wonderful family. I will continue to follow her along with you closely and will be available to answer any questions at area code [phone]. Disclaimer: Inadvertent spelling and grammatical errors are likely due to EHR/ dictation software use and do not reflect on the quality of delivered patient care. Also, please note that the electronic time recorded on this node does not necessarily reflect the actual time of the visit. Updated clinical summary: Very pleasant 41-year-old lady who presented to [facility] emergency department on 01/23/2017 with sharp onset abdominal pain of 1 day duration and clinical picture consistent with gallstone pancreatitis. Comorbidities: 1. BMI 37.8 2. Anemia 3. Metabolic syndrome 4. Previous history of pancreatitis (per patient's report) 5. Status post appendectomy 6. Status post tubal ligation 7. Kidney stones (reported once in the chart) HISTORY OF PRESENT ILLNESS: The patient is a very pleasant 41-year-old lady with above-mentioned comorbidities who were kindly asked consult regarding management of her gallstone pancreatitis. Patient's pain was 1 day in duration and started after dinner. It was in the right upper quadrant, with no radiation to the back, 10 out of 10 at its worse with worsening symptoms with eating and no alleviating factors. Associated nausea and vomiting. No fevers. No changes in bowel or bladder habits. No diarrhea or constipation or blood in the stool or urine. Her workup included laboratory values that showed significantly elevated lipase levels indicating pancreatitis. An MRCP was performed which showed no evidence of choledocholithiasis but evidence of cholelithiasis as well as pancreatitis. Patient's reported similar symptoms for her at least once or twice in the last few years. She was seen for gallbladder complaints and was sent home from the emergency department in the past. ALLERGIES: NO KNOWN DRUG ALLERGIES MEDICATIONS None reported SOCIAL HISTORY: The patient lives with family. Works at [employer];-[employer];- [employer] FAMILY HISTORY: Father had throat cancer. There are no other significant medical, surgical or oncologic issues in the family as reported by the patient or reflected in the chart. REVIEW OF SYSTEMS: Other than mentioned above, there were no other pertinent positives or pertinent negatives in an otherwise complete 14 point review of systems. PHYSICAL EXAMINATION GENERAL: The patient appears to be a very pleasant lady of descent lying in bed, appearing stated age,] and otherwise in no acute distress. BMI: 37.8 VITAL SIGNS: AVSS (please also see below) HEENT: Normocephalic and atraumatic. Extraocular muscles and hearing are grossly intact bilaterally and symmetrically. Sclerae are nonicteric. Oral cavity is clear; oral mucosa appear to be pink and moist. Dentition: Poor. NECK: Supple. There is no lymphadenopathy or JVD. There is no submental, submandibular or supraclavicular lymphadenopathy. CHEST: Rises symmetrically with each breath; patient is breathing comfortably. There are no audible wheezes, rales or rhonchi on the gross exam. HEART: Pulse is regular and palpable on the right wrist. Capillary refill is normal. Carotid pulses are palpable bilaterally and symmetrically in the neck. EXTREMITIES: Lower extremities contain no pitting edema around the ankles bilaterally and symmetrically. ABDOMEN: Abdomen is soft, minimally tender to palpation in all quadrants but worse in the upper quadrants and nondistended. No evidence of ascites, organomegaly, caput medusae, engorged subcutaneous veins, or other abnormalities. There are no peritoneal signs or guarding. SKIN: Appears to be pink and feels warm to touch. NEUROLOGIC: Awake, alert, and follows commands appropriately. LABORATORY DATA: See below white blood cell count 11.4, increased from admission of 9.9, platelets 232, electrolytes normal, creatinine 0.55, CO2 23, total bilirubin 0.6, AST 422, ALT 442, alkaline phosphatase 144, lipase 13,353, down from admission level of 49,375. Albumin 4.6 before hydration. IMAGING: See electronic chart. Please note that I've personally reviewed all pertinent available images and I agree in general with their overall reported findings. Right upper quadrant ultrasound at [facility] 01/23/2017 IMPRESSION: 1. Cholelithiasis without evidence of cholecystitis. 2. Mildly prominent common bile duct which measures up to 7 mm in diameter, previously 4 mm. Correlate with bilirubin levels. If there is concern for cholestasis, consider MRCP. MRCP at [facility] 01/23/2017 IMPRESSION: 1. Cholelithiasis with gallbladder wall thickening and gallbladder hydrops concerning for cholecystitis but with a normal common bile duct and MRCP, no evidence of choledocholithiasis. 2. Peripancreatic phlegmon in the left greater than right anterior pararenal space raises concern for pancreatitis and serologic correlation is recommended. Consultation Date/Type/Reason Admit Date/Time Jan 22, 2017 at 13:57 Social History Alcohol Use: none Smoking Status: Never smoker Exam/Review of Systems Vital Signs Vitals Vital Signs Date Time Temp Pulse Resp B/P Pulse Ox O2 Delivery O2 Flow Rate FiO2 01/23/17 14:31 97.9 78 18 108/59 96 01/22/17 15:08 Room Air Intake and Output 01/22/17 01/22/17 01/23/17 15:00 23:00 07:00 Intake Total 200 ml 1725 ml Balance 200 ml 1725 ml Results Result Diagram: 01/23/17 0515 01/23/17 0525 Results 24 hrs Laboratory Tests Test 01/23/17 05:15 01/23/17 05:25 White Blood Count 11.4 H Red Blood Count 3.70 L Hemoglobin 9.5 L Hematocrit 30.3 L Mean Corpuscular Volume 81.9 L Mean Corpuscular Hemoglobin 25.7 L Mean Corpuscular Hemoglobin Concent 31.4 L Red Cell Distribution Width 16.3 H Platelet Count 232 Mean Platelet Volume 11.9 H Neutrophils % 81.2 H Lymphocytes % 12.5 L Monocytes % 5.0 Eosinophils % 0.6 Basophils % 0.3 Nucleated Red Blood Cells % 0.0 Neutrophils # 9.3 H Lymphocytes # 1.4 Monocytes # 0.6 Eosinophils # 0.1 Basophils # 0.0 Nucleated Red Blood Cells # 0.0 Prothrombin Time 13.5 Prothrombin Time Ratio 1.1 INR International Normalized Ratio 1.03 Hemoglobin A1c 5.8 Iron Level 66 Total Iron Binding Capacity 340 Percent Iron Saturation 19 L Lactate Dehydrogenase 1099 H Lipase 06991 H Serum HCG, Qualitative NEGATIVE Hepatitis B Surface Antigen NEGATIVE Hepatitis B Core Total Antibody NEGATIVE Hepatitis C Antibody NEGATIVE Sodium Level 139 Potassium Level 3.7 Chloride Level 105 Carbon Dioxide Level 23 Anion Gap 15 Blood Urea Nitrogen 13 Creatinine 0.55 Glucose Level 116 Calcium Level 8.1 L Phosphorus Level 2.8 Magnesium Level 2.0 Total Bilirubin 0.6 Direct Bilirubin 0.00 Indirect Bilirubin 0.6 Aspartate Amino Transf (AST/SGOT) 422 H Alanine Aminotransferase (ALT/SGPT) 442 H Alkaline Phosphatase 144 H Total Protein 6.8 # Albumin 3.8 Globulin 3.00 Albumin/Globulin Ratio 1.26 Triglycerides Level 64 Cholesterol Level 170 LDL Cholesterol, Calculated 92 HDL Cholesterol 65 Cholesterol/HDL Ratio 2.6 Thyroid Stimulating Hormone (TSH) 0.430 L Medications Medications Current Medications Sodium Chloride (NS) 1,000 ml @ 125 mls/hr Q8H IV Last administered on 14:59; Admin Dose 250 MLS/HR; Start 01/22/17 at 16:30 Ondansetron HCl (Zofran Inj) 4 mg Q6H PRN IV NAUSEA AND/OR VOMITING Last administered on 01/22/17 16:08; Admin Dose 4 MG; Start 01/22/17 at 15:30 Acetaminophen (Tylenol Tab) 650 mg Q6H PRN PO PAIN LEVEL 1-3 OR FEVER; Start at 15:30 Acetaminophen (Tylenol Supp) 650 mg Q6H PRN [place] PAIN LEVEL 1-3 OR FEVER; Start 01/22/17 at 15:30 Morphine Sulfate (morphine) 2 mg Q4H PRN IV SEVERE PAIN LEVEL 7-10 Last administered on 01/23/17 08:15; Admin Dose 2 MG; Start 01/22/17 at 15:15 Famotidine 20 mg 20 mg Q12 IV Last administered on 01/23/17 08:15; Admin Dose 20 MG; Start 01/22/17 at 15:30 Piperacillin Sod/ Tazobactam Sod (Zosyn 3.375gm/ 100 ml (Pmx)) 100 ml @ 200 mls /hr Q8 IVPB Last administered on 01/23/17 13:33; Admin Dose 200 MLS/HR; Start 01/22/17 at 16:00 Enoxaparin Sodium (Lovenox) 40 mg DAILY SC ; Start 01/24/17 at 09:00 FLOR CASAS M.D. Jan 23, 2017 18:45
[2017-01-23 20:00] VITALS: BP 125/60; RESP 18
[2017-01-24 02:00] VITALS: BP 111/53; PULSE 77; RESP 18
[2017-01-24 02:50] VITALS: BP 111/56; RESP 18
[2017-01-24 05:43] LABS: ADD SCAN DIFF NO
[2017-01-24 05:50] LABS: BASOPHILS % 0.2 % (0.0-2.0); EOSINOPHILS # 0.2 10^3/ul (0.0-0.5); EOSINOPHILS % 1.5 % (0.0-7.0); HEMATOCRIT 29.8 % (37.0-47.0); HEMOGLOBIN 9.3 g/dl (12.0-16.0); LYMPHOCYTES # 2.3 10^3/ul (0.8-2.9); LYMPHOCYTES % 16.9 % (15.0-51.0); MEAN CORPUSCULAR HEMOGLOBIN 25.3 pg (29.0-33.0); MEAN CORPUSCULAR HGB CONC 31.2 g/dl (32.0-37.0); MEAN CORPUSCULAR VOLUME 81.2 fl (82.0-101.0); MEAN PLATELET VOLUME 12.2 fl (7.4-10.4); MONOCYTE # 0.9 10^3/ul (0.3-0.9); MONOCYTES % 6.5 % (0.0-11.0); NEUTROPHILS % 74.5 % (39.0-77.0); PLATELET COUNT 231 10^3/UL (140-415); RED BLOOD COUNT 3.67 10^6/ul (4.20-5.40); RED CELL DISTRIBUTION WIDTH 16.5 % (11.5-14.5); WHITE BLOOD COUNT 13.4 10^3/ul (4.8-10.8)
[2017-01-24] MEDS: PIPER-TAZO 3.375 GM IV (PMX) 100 ML IVPB SCH ×3 (05:55→21:16)
[2017-01-24 06:44] LABS: ALBUMIN 3.7 g/dl (3.3-4.9); ALBUMIN/GLOBULIN RATIO 1.27; BILIRUBIN,INDIRECT 0.2 mg/dl (0-1.1); BILIRUBIN,TOTAL 0.2 mg/dl (0.2-1.3); CALCIUM 8.5 mg/dl (8.4-10.2); CREATININE 0.6 mg/dl (0.44-1.00); POTASSIUM 3.8 mmol/L (3.5-5.1); TOTAL PROTEIN 6.6 g/dl (6.1-8.1)
[2017-01-24] MEDS: SOD CHLORIDE 0.9% 1,000 ML IV SCH (08:34)
[2017-01-24] MEDS: FAMOTIDINE 20 MG INJ IV SCH ×2 (08:43→21:16)
[2017-01-24 08:47] VITALS: BP 107/52; RESP 18
[2017-01-24] MEDS ORDERED: ENOXAPARIN 40 MG/0.4 ML SYG SC SCH (09:00)
--- NOTE | 2017-01-24 13:49 | PN ---
Date/Time of Note Date/Time of Note DATE: 01/24/17 TIME: 13:46 Assessment/Plan Lines/Catheters IV Catheter Type (from [facility]): Peripheral IV Assessment/Plan Assessment/Plan [facility] Progress Note Date of Service: 01/24/17 Today's Impression & Plan: Overall stable. Pancreatitis seemed improved. Rising WBC could indicate worsening cholecystitis. On the schedule for lap sagar tomorrow. With above assessment, I've recommended the following for today: 1. Cont current management 2. NPO after midnight 3. Labs in am 4. To OR for lap sagar tomorrow am Thank you again for your great care of this very pleasant patient and wonderful family. If there are any questions, please feel free to call me at [phone]. Disclaimer: Inadvertent spelling or grammatical errors are likely due to EHR/ dictation software use and do not reflect on the overall quality of patient care. Updated Clinical Summary: Very pleasant 41-year-old lady who presented to [facility] emergency department on 01/23/2017 with sharp onset abdominal pain of 1 day duration and clinical picture consistent with gallstone pancreatitis. Comorbidities: 1. BMI 37.8 2. Anemia 3. Metabolic syndrome 4. Previous history of pancreatitis (per patient's report) 5. Status post appendectomy 6. Status post tubal ligation 7. Kidney stones (reported once in the chart) Subjective: No major events or complaints; no major abd pain and under control with medications; no n/v/d; no sob or cp; + flatus; - BM; minimal activity Objective: Vitals: See below Exam: GENERAL: On exam, the patient was laying in bed and appeared to be comfortable and in no acute distress. ABDOMEN: Soft, nontender and nondistended. There are no peritoneal signs or guarding. SKIN: Skin appears to be pink and feels warm to touch. NEUROLOGIC: Patient is awake, alert, and follows commands appropriately. Exam/Review of Systems Vital Signs Vitals Vital Signs Date Time Temp Pulse Resp B/P Pulse Ox O2 Delivery O2 Flow Rate FiO2 01/24/17 08:47 98.5 80 18 107/52 97 01/24/17 02:00 Room Air Intake and Output 01/23/17 01/23/17 01/24/17 15:00 23:00 07:00 Intake Total 1350 ml 1000 ml 1000 ml Balance 1350 ml 1000 ml 1000 ml Results Result Diagram: 01/24/17 0500 01/24/17 0500 FLOR CASAS M.D. Jan 24, 2017 13:48
[2017-01-24 14:49] VITALS: BP 121/65; RESP 20
--- NOTE | 2017-01-24 16:52 | PN ---
Date/Time of Note Date/Time of Note DATE: 01/24/17 TIME: 16:49 Assessment/Plan VTE Prophylaxis VTE Prophylaxis Intervention: LMWH Lines/Catheters IV [facility] ([facility] Per[facility] IV Assessment/Plan Chief Complaint/Hosp Course S- no events O- vss; except mild fever PE no pallor/ icterus reg s2s2 no m r g ctab bs+ mild tender; nd; no r r g no edema A/P 1. Acute pancreatitis; stable cont npo. Zosyn/MRCP. for lap chol -low periop risk; may proceed forward to surgery from medical standpoint. 2. Acute symptomatic cholelithiasis/cholecystitis 3. Anemia 4. Metabolic syndrome 5. Incomplete rbbb. No evidence of syncope/ symptoms; incidental. May proceed forward to surgery. 6. Subclinical hyperthyroidism. 7. Peripancreatic Phlegmon? Problems: Exam/Review of Systems Vital Signs Vitals Vital Signs Date Time Temp Pulse Resp B/P Pulse Ox O2 Delivery O2 Flow Rate FiO2 01/24/17 14:49 98.1 84 20 121/65 98 01/24/17 02:00 Room Air Intake and Output 01/23/17 01/23/17 01/24/17 15:00 23:00 07:00 Intake Total 1350 ml 1000 ml 1000 ml Balance 1350 ml 1000 ml 1000 ml Results Result Diagram: 01/24/17 0500 01/24/17 0500 Results 24 hrs Laboratory Tests Test 01/24/17 05:00 White Blood Count 13.4 H Red Blood Count 3.67 L Hemoglobin 9.3 L Hematocrit 29.8 L Mean Corpuscular Volume 81.2 L Mean Corpuscular Hemoglobin 25.3 L Mean Corpuscular Hemoglobin Concent 31.2 L Red Cell Distribution Width 16.5 H Platelet Count 231 Mean Platelet Volume 12.2 H Neutrophils % 74.5 Lymphocytes % 16.9 Monocytes % 6.5 Eosinophils % 1.5 Basophils % 0.2 Nucleated Red Blood Cells % 0.0 Neutrophils # 10.0 H Lymphocytes # 2.3 Monocytes # 0.9 Eosinophils # 0.2 Basophils # 0.0 Nucleated Red Blood Cells # 0.0 Sodium Level 140 Potassium Level 3.8 Chloride Level 103 Carbon Dioxide Level 24 Anion Gap 17 H Blood Urea Nitrogen 6 L Creatinine 0.60 Glucose Level 69 #L Calcium Level 8.5 Total Bilirubin 0.2 Direct Bilirubin 0.00 Indirect Bilirubin 0.2 Aspartate Amino Transf (AST/SGOT) 139 H Alanine Aminotransferase (ALT/SGPT) 282 H Alkaline Phosphatase 130 H Total Protein 6.6 Albumin 3.7 Globulin 2.90 Albumin/Globulin Ratio 1.27 Lipase 802 H Free Thyroxine 1.06 Total Triiodothyronine 0.79 L Medications Medications Current Medications Sodium Chloride (NS) 1,000 ml @ 125 mls/hr Q8H IV Last administered on 08:34; Admin Dose 125 MLS/HR; Start 01/22/17 at 16:30 Ondansetron HCl (Zofran Inj) 4 mg Q6H PRN IV NAUSEA AND/OR VOMITING Last administered on 01/22/17 16:08; Admin Dose 4 MG; Start 01/22/17 at 15:30 Acetaminophen (Tylenol Tab) 650 mg Q6H PRN PO PAIN LEVEL 1-3 OR FEVER; Start at 15:30 Acetaminophen (Tylenol Supp) 650 mg Q6H PRN [place] PAIN LEVEL 1-3 OR FEVER; Start 01/22/17 at 15:30 Morphine Sulfate (morphine) 2 mg Q4H PRN IV SEVERE PAIN LEVEL 7-10 Last administered on 01/23/17 08:15; Admin Dose 2 MG; Start 01/22/17 at 15:15 Famotidine 20 mg 20 mg Q12 IV Last administered on 01/24/17 08:43; Admin Dose 20 MG; Start 01/22/17 at 15:30 Piperacillin Sod/ Tazobactam Sod (Zosyn 3.375gm/ 100 ml (Pmx)) 100 ml @ 200 mls /hr Q8 IVPB Last administered on 01/24/17 13:51; Admin Dose 200 MLS/HR; Start 01/22/17 at 16:00 Enoxaparin Sodium (Lovenox) 40 mg DAILY SC Last administered on 01/24/17 08:43 ; Admin Dose 40 MG; Start 01/24/17 at 09:00 JESSICA GATES MD Jan 24, 2017 16:52
[2017-01-24] MEDS: D5W-0.45 NACL + KCL 10 MEQ 1,000 ML IV SCH (18:58)
[2017-01-24 20:00] VITALS: BP 125/69; PULSE 80; RESP 18
--- NOTE | 2017-01-24 20:15 | RADRPT ---
PROCEDURE: XR Chest. CLINICAL INDICATION: Preoperative. TECHNIQUE: Single frontal view. COMPARISON: 05/30/2016. FINDINGS: The lungs are clear. The heart size is normal. There is no pleural effusion. There is no pneumothorax. IMPRESSION: 1. Normal chest radiograph. RPTAT: QQ .Padilla Street MD, MD Date Time Electronically viewed and signed by .Padilla Street MD, on 01/24/2017 20:14 .R/
[2017-01-25] VITALS (15 sets, daily range): BP systolic 99–125; BP diastolic 46–72; PULSE 60–85; RESP 14–21
[2017-01-25] MEDS: D5W-0.45 NACL + KCL 10 MEQ 1,000 ML IV SCH (05:17)
[2017-01-25] MEDS: PIPER-TAZO 3.375 GM IV (PMX) 100 ML IVPB SCH (05:17)
[2017-01-25 06:03] LABS: ADD SCAN DIFF NO
[2017-01-25 06:06] LABS: BASOPHILS % 0.3 % (0.0-2.0); EOSINOPHILS # 0.2 10^3/ul (0.0-0.5); EOSINOPHILS % 1.5 % (0.0-7.0); HEMATOCRIT 29.1 % (37.0-47.0); HEMOGLOBIN 9.3 g/dl (12.0-16.0); LYMPHOCYTES # 2.1 10^3/ul (0.8-2.9); LYMPHOCYTES % 16.5 % (15.0-51.0); MEAN CORPUSCULAR HEMOGLOBIN 25.7 pg (29.0-33.0); MEAN CORPUSCULAR VOLUME 80.4 fl (82.0-101.0); MEAN PLATELET VOLUME 12.1 fl (7.4-10.4); MONOCYTE # 0.9 10^3/ul (0.3-0.9); MONOCYTES % 6.9 % (0.0-11.0); NEUTROPHIL # 9.3 10^3/ul (1.6-7.5); NEUTROPHILS % 74.3 % (39.0-77.0); PLATELET COUNT 248 10^3/UL (140-415); RED BLOOD COUNT 3.62 10^6/ul (4.20-5.40); RED CELL DISTRIBUTION WIDTH 16.6 % (11.5-14.5); WHITE BLOOD COUNT 12.5 10^3/ul (4.8-10.8)
[2017-01-25 06:37] LABS: INR 1.16; PARTIAL THROMBOPLASTIN TIME 35.1 Sec (25.0-35.0); PROTIME 14.9 Sec (12.2-14.2); PT RATIO 1.2
[2017-01-25] MEDS ORDERED: BUPIVACAINE 0.25%/EPI (SDV) 30 ML INJ ONE (06:51)
[2017-01-25 06:57] LABS: ALBUMIN 4.3 g/dl (3.3-4.9); ALBUMIN/GLOBULIN RATIO 1.22; BILIRUBIN,INDIRECT 0.3 mg/dl (0-1.1); BILIRUBIN,TOTAL 0.3 mg/dl (0.2-1.3); CALCIUM 8.8 mg/dl (8.4-10.2); CREATININE 0.6 mg/dl (0.44-1.00); MAGNESIUM 2.2 mg/dl (1.7-2.5); PHOSPHORUS 2.4 mg/dl (2.5-4.9); POTASSIUM 3.4 mmol/L (3.5-5.1); TOTAL PROTEIN 7.8 g/dl (6.1-8.1)
[2017-01-25] MEDS ORDERED: SUGAMMADEX SODIUM 200 MG/2 ML VIAL IV ONE (07:00)
[2017-01-25] MEDS ORDERED: KETOROLAC 30 MG INJ ONE (07:00)
[2017-01-25] MEDS ORDERED: PROPOFOL 20 ML ONE (07:34)
[2017-01-25] MEDS ORDERED: ROCURONIUM 50 MG INJ ONE (07:34)
[2017-01-25] MEDS ORDERED: FENTAnyl 50 MCG/ML VIAL ONE ×2 (07:36→08:10)
[2017-01-25] MEDS ORDERED: MIDAZOLAM 1 MG/ML 2 ML INJ ONE (07:36)
--- NOTE | 2017-01-25 07:37 | HPN ---
Date/Time of Note Date/Time of Note DATE: 01/25/17 TIME: 07:27 Interval H&P Admission Note Pt. seen H&P reviewed: No system changes Pt. seen H&P reviewed. No system changes (I attest that I have seen and examined the patient and reviewed the operation in detail, as well as its risks , benefits and alternatives of the operation). I attest that I have seen and examined the patient and reviewed in detail the operation, and its associated risks, benefits and alternative. I have answered all the patient's questions to the best of my ability and the patient wishes to proceed. Please refer to rest of electronic medical record for additional updates. FLOR CASAS M.D. Jan 25, 2017 07:37
[2017-01-25] MEDS ORDERED: LIDOCAINE 1% (MDV) 20 ML INJ ONE (07:39)
[2017-01-25] MEDS ORDERED: ROPIVACAINE 0.2% 20 ML VIAL ONE (07:45)
[2017-01-25] MEDS ORDERED: ONDANSETRON 4 MG INJ ONE (08:04)
[2017-01-25] MEDS ORDERED: DEXAMETHASONE 4 MG/ML 1 ML INJ ONE (08:04)
[2017-01-25] MEDS ORDERED: FAMOTIDINE 20 MG INJ ONE (08:04)
[2017-01-25] MEDS ORDERED: DEXTROSE 50% 50 ML SYRINGE ONE (08:26)
[2017-01-25] MEDS ORDERED: MEPERIDINE 25 MG INJ IV PRN (08:30)
[2017-01-25] MEDS ORDERED: DIPHENHYDRAMINE 50 MG INJ IV PRN (08:30)
[2017-01-25] MEDS ORDERED: HYDROmorphONE (0.2 MG/ML) 10ML SYG IV PRN ×3 (08:30)
[2017-01-25] MEDS ORDERED: ONDANSETRON 4 MG INJ IV PRN (08:30)
[2017-01-25] MEDS: FAMOTIDINE 20 MG INJ IV SCH (09:00)
[2017-01-25] MEDS ORDERED: HYDROmorphONE 1 MG/ML SYG IV PRN ×2 (09:30)
[2017-01-25] MEDS ORDERED: BISACODYL 10 MG SUPP PR PRN (09:30)
[2017-01-25] MEDS ORDERED: HYDROCODONE/APAP (5/325) TAB PO PRN ×2 (09:30)
[2017-01-25] MEDS ORDERED: DOCUSATE SODIUM 100 MG CAP PO PRN (09:30)
[2017-01-25] MEDS ORDERED: NA PHOSPHATE/BIPHOS 133 ML ENEMA PR PRN (09:30)
[2017-01-25] MEDS: D5W-0.45 NACL + KCL 20 MEQ 1,000 ML IV SCH ×2 (10:56→19:02)
--- NOTE | 2017-01-25 13:00 | OPR ---
Date/Time of Note Date/Time of Note DATE: 01/25/17 TIME: 09:59 Operative Report Procedure Description [facility] INPATIENT OPERATIVE NOTE PLACE OF SERVICE: [facility] DATE OF SURGERY: 01/25/2017 PREOPERATIVE DIAGNOSIS: 1. Gallstone pancreatitis and possible early acute cholecystitis 2. BMI 37.8 3. Metabolic syndrome 4. Previous history of pancreatitis (per patient's report) 5. Status post appendectomy 6. Status post tubal ligation 7. Kidney stones (reported once in the chart) 8. Anemia POSTOPERATIVE DIAGNOSIS: 1. Gallstone pancreatitis and possible early acute cholecystitis 2. BMI 37.8 3. Metabolic syndrome 4. Previous history of pancreatitis (per patient's report) 5. Status post appendectomy 6. Status post tubal ligation 7. Kidney stones (reported once in the chart) 8. Anemia 9. Ventral incisional hernia (between umbilicus and subxiphoid area, approximately 2 cm in greatest diameter) OPERATION: 1. Laparoscopic cholecystectomy SURGEON: Flor Casas M.D. ENGINEER DESIGN AND CONSTRUCTION: None ANESTHESIA: General endotracheal tube anesthesia ANESTHESIOLOGIST: Estela Fox M.D. BRIEF SUMMARY: An otherwise uncomplicated laparoscopic cholecystectomy was performed with findings of acute cholecystitis. We also discovered an incisional ventral hernia that was approximately 2 cm in greatest diameter located midway between subxiphoid midline and umbilicus Updated Clinical Summary: Very pleasant 41-year-old lady who presented to [facility] emergency department on 01/23/2017 with sharp onset abdominal pain of 1 day duration and clinical picture consistent with gallstone pancreatitis. Comorbidities: 1. BMI 37.8 2. Anemia 3. Metabolic syndrome 4. Previous history of pancreatitis (per patient's report) 5. Status post appendectomy 6. Status post tubal ligation 7. Kidney stones (reported once in the chart) BRIEF HISTORY: The patient is a very pleasant 41-year-old lady who presented to [facility] emergency department on 01/23/2017 with sharp onset abdominal pain of 1 day duration and clinical picture consistent with gallstone pancreatitis. We kept the patient in house and administered supportive care for her pancreatitis. She continued to improve with decreasing lipase levels and clinical improvement of her pancreatitis. I recommended laparoscopic, possible open cholecystectomy towards the end of this admission as a risk reduction strategy to bring her risk down from 30% in the next 6 months to near 0. I described the operation in detail with the help of diagrams and distributed printed material to the patient and family for further education. I described the risks, benefits, and alternatives with the patient and family and obtained her consent for the operation. After careful consideration of all the risks, benefits, and alternatives, the patient and family appeared to understand those risks and wished to proceed with surgery. For a detailed report of my consultation with patient and family, please refer to my separate consultation note. STATEMENT OF THE INFORMED CONSENT: The patient and family appeared to understand the risks of the operation to include, but not be limited to risk of postoperative pain and scar tissue, possible infection or bleeding requiring other interventions such as opening the wound, placement of drainage catheters, or other operative interventions; possible injury to surrounding to structures including bowel, bladder, bile duct, or blood vessels, or solid organs such as liver, kidney, or pancreas requiring other interventions or procedures; possible leakage of bile from surgical clip sites, suture lines, or worse, from common bile duct injury, causing significant increase in morbidity and mortality and requiring multiple interventions including but not limited to, placement of drainage catheters, imaging studies, as well as operative interventions; possible other source of sepsis such as urinary tract infections or pneumonias, or other sources of potentially life threatening problems such as deep venous thrombus formation causing pulmonary embolism, myocardial arrhythmias and infarctions, and even . After careful consideration of all their options, the patient and family appeared to understand and wished to proceed with surgery. DESCRIPTION OF PROCEDURE: After obtaining informed consent, the patient was brought into the operating room and was placed in a normal supine position, where successful general endotracheal tube anesthesia was performed. The patient 's abdominal skin was prepped and draped, from the nipple line down to the level of the groins, in the usual sterile fashion. Intravenous access was already in place, and appropriately chosen and dosed prophylactic intravenous antimicrobials were administered. We then called a surgical time-out where patient's identification, date of , nature of the operation, allergies, presence of intravenous antimicrobials, presence of needed equipment, and any other concerns were reviewed and agreed upon by all members of the operating room team. We then started the operation by placing a 5-mm skin incision in the right- upper quadrant, subcostal midclavicular line, and introduced a 5-mm [employer] trocar into the peritoneal space, visualizing all the layers of the abdominal wall as we entered. Note that there was no indication of any injury to underlying structures once we entered the peritoneum. We insufflated the abdominal cavity to a maximum pressure of 15 mmHg, again, confirmed lack of any injury to underlying structures prior to visualizing the rest of the abdominal cavity. We found the fundus of the gallbladder to be visible. There was no evidence of malignancy. No evidence of calcifications or significant issues with adhesions, or other abnormalities, with the exception of an incidentally discovered 2 cm in diameter ventral incisional type hernia that was located midway between the subxiphoid region and the umbilicus without incarcerated bowel or omentum within it. The liver appeared to be healthy. With this information, we went a head and placed the other trocars under direct visualization, after injecting their sites with 0.25% Marcaine with epinephrine , placing a 5-mm trocar in the umbilical midline area, a 5-mm trocar in the right anterior axillary line, and a 12-mm trocar in the midline subxiphoid region. With our instruments in place, we had excellent visualization and access to the right-upper quadrant. We then we grasped the fundus of the gallbladder and pointed up towards the right-upper quadrant. There was mild omental adhesions onto the infundibulum which we took down with judicious use of cautery, as well as meticulous blunt dissection. We were then able to grasp the infundibulum and pull it out in order to expose the critical triangle of Calot. We then placed our usual serosal cuts along the long axis of the gallbladder 1 cm away from its attachment to the liver bed up towards the fundus, and then joined these 2 lines under the infundibulum, taking care not to deliver any energy to underlying structures. Due to presence of inflammation in the triangle of Calot low, and to increase the degree of safety of the operation, I decided to take the gallbladder top-down which we performed using cautery. We then performed meticulous dissection to identify and circumferentially isolate the cystic cystic artery, prior to transecting it between 2 surgical Endoclips, proximally and one distally using cold scissors. We then circumferentially isolated the cystic duct and transected across this using one firing of the 35 mm Endo GLEN stapler (white) vascular load. The stapler fired without any technical difficulty and the rows of lila were retina subspecialist. Please also note that we transected across these 2 areas only after making sure that these were the only 2 structures going into the gallbladder. We then shaved the gallbladder off the gallbladder bed using cautery, and then delivered it out inside of an EndoCatch bag through the 12-mm trocar site without enlarging the fascia or contaminating the wound. The gallbladder was sent to Pathology for evaluation. Returning to the abdominal cavity, we ensured that there was adequate hemostasis and bile-stasis prior to removal of all of or equipment, including the pneumoperitoneum, and then reapproximating the 12-mm trocar site with one [id number] 0 Vicryl suture, followed by washing the wounds with copious amounts of normal saline, and then reapproximating the skin using interrupted 4- 0 Monocryl sutures. Light dressing was then applied. At the end of the operation, both the sponge count and needle count were reportedly correct x2. The patient tolerated the procedure without any reported complications. Please also note that the decision-making included purposeful nonintervention for the incidentally discovered ventral hernia that the patient had given the fact that we were operating on the gallbladder and the potential for mesh infection which would be unreasonable risk for the patient at this time. Patient would benefit from possible hernia repair in the future at a time when there is minimal to no risk of infection since most likely mesh would have to be used. ESTIMATED BLOOD LOSS: 20 mL BLOOD OR BLOOD PRODUCT TRANSFUSIONS: None to my knowledge. SPECIMENS: 1. Gallbladder COMPLICATIONS: None. DISPOSITION: Recovery area. Disclaimer: Inadvertent spelling and grammatical errors are likely due to EHR/ dictation software use and do not reflect on the quality of delivered patient care. FLOR CASAS M.D. Jan 25, 2017 13:00
--- NOTE | 2017-01-25 15:11 | PN ---
Date/Time of Note Date/Time of Note DATE: 01/25/17 TIME: 15:09 Assessment/Plan VTE Prophylaxis VTE Prophylaxis Intervention: LMWH Lines/Catheters IV [facility]ter Type (from [facility]): Peripheral IV Urinary Cath still in place: No Assessment/Plan Chief Complaint/Hosp Course S- 01/24 No events 01/25 Events noted. No distress. O- vss PE no pallor/ icterus reg s2s2 no m r g ctab bs+ mild tender; nd; no r r g no edema A/P 1. Acute pancreatitis; stable cont npo. Zosyn. sp MRCP & lap chol. stable treat pain. 2. Acute symptomatic cholelithiasis/cholecystitis 3. Anemia 4. Metabolic syndrome 5. Incomplete rbbb. No evidence of syncope/ symptoms; incidental. 6. Subclinical hyperthyroidism. 7. Peripancreatic Phlegmon? Problems: Exam/Review of Systems Vital Signs Vitals Vital Signs Date Time Temp Pulse Resp B/P Pulse Ox O2 Delivery O2 Flow Rate FiO2 01/25/17 11:50 98.5 60 18 110/56 95 Room Air Intake and Output 01/24/17 01/24/17 01/25/17 15:00 23:00 07:00 Intake Total 100 ml 874 ml 1100 ml Balance 100 ml 874 ml 1100 ml Results Result Diagram: 01/25/1752201/25/17522 Results 24 hrs Laboratory Tests Test 01/24/17 17:15 01/25/17 05:23 01/25/17 05:53 01/25/17 10:02 Lipase 367 H 544 H White Blood Count 12.5 H Red Blood Count 3.62 L Hemoglobin 9.3 L Hematocrit 29.1 L Mean Corpuscular Volume 80.4 L Mean Corpuscular Hemoglobin 25.7 L Mean Corpuscular Hemoglobin Concent 32.0 Red Cell Distribution Width 16.6 H Platelet Count 248 Mean Platelet Volume 12.1 H Neutrophils % 74.3 Lymphocytes % 16.5 Monocytes % 6.9 Eosinophils % 1.5 Basophils % 0.3 Nucleated Red Blood Cells % 0.0 Neutrophils # 9.3 H Lymphocytes # 2.1 Monocytes # 0.9 Eosinophils # 0.2 Basophils # 0.0 Nucleated Red Blood Cells # 0.0 Prothrombin Time 14.9 H Prothrombin Time Ratio 1.2 INR International Normalized Ratio 1.16 Activated Partial Thromboplast Time 35.1 H Sodium Level 141 Potassium Level 3.4 L Chloride Level 101 Carbon Dioxide Level 27 Anion Gap 16 Blood Urea Nitrogen 6 L Creatinine 0.60 Glucose Level 115 # Calcium Level 8.8 Phosphorus Level 2.4 L Magnesium Level 2.2 Total Bilirubin 0.3 Direct Bilirubin 0.00 Indirect Bilirubin 0.3 Aspartate Amino Transf (AST/SGOT) 70 H Alanine Aminotransferase (ALT/SGPT) 209 H Alkaline Phosphatase 121 Total Protein 7.8 # Albumin 4.3 Globulin 3.50 H Albumin/Globulin Ratio 1.22 Serum HCG, Qualitative NEGATIVE Bedside Glucose 154 Medications Medications Current Medications Ondansetron HCl (Zofran Inj) 4 mg Q6H PRN IV NAUSEA AND/OR VOMITING Last administered on 01/22/17 16:08; Admin Dose 4 MG; Start 01/22/17 at 15:30 Acetaminophen (Tylenol Tab) 650 mg Q6H PRN PO PAIN LEVEL 1-3 OR FEVER; Start at 15:30 Acetaminophen (Tylenol Supp) 650 mg Q6H PRN FL PAIN LEVEL 1-3 OR FEVER; Start 01/22/17 at 15:30 Famotidine 20 mg 20 mg Q12 IV Last administered on 01/24/17 21:16; Admin Dose 20 MG; Start 01/22/17 at 15:30 Potassium Chloride/Dextrose/ Sod Cl (D5-1/2ns + KCl 20 Meq) 1,000 ml @ 100 mls/ hr Q10H IV Last administered on 01/25/17 10:56; Admin Dose 100 MLS/HR; Start at 09:11 Acetaminophen/ Hydrocodone Bitart (Blunt (5/325)) 1 tab Q4H PRN PO PAIN LEVEL 4 -7; Start 01/25/17 at 09:30 Acetaminophen/ Hydrocodone Bitart (Blunt (5/325)) 2 tab Q4H PRN PO PAIN LEVEL 7 -10; Start 01/25/17 at 09:30 Hydromorphone HCl (Dilaudid) 0.5 mg Q2H PRN IV PAIN; Start 01/25/17 at 09:30 Hydromorphone HCl (Dilaudid) 1 mg Q2H PRN IV PAIN; Start 01/25/17 at 09:30 Docusate Sodium (Colace) 100 mg BID PRN PO CONSTIPATION; Start 01/25/17 at 09:30 Bisacodyl (Dulcolax Supp) 10 mg BID PRN FL CONSTIPATION; Start 01/25/17 at 09:30 Sodium Biphosphate/ Sodium Phosphate (Fleet Enema) 133 ml BID PRN FL CONSTIPATION; Start 01/25/17 at 09:30 Enoxaparin Sodium (Lovenox) 40 mg DAILY SC ; Start 01/26/17 at 09:00 JESSICA GATES MD Jan 25, 2017 15:11
--- NOTE | 2017-01-25 16:18 | DS ---
Date/Time of Note Date/Time of Note DATE: 01/25/17 TIME: 16:13 Discharge Summary Admission/Discharge Info Admit Date/Time Jan 22, 2017 at 13:57 Discharge Date/Time 01/25/17 Discharge Diagnosis Pancreatitis Cholecystitis MRCP IMPRESSION: 1. Cholelithiasis with gallbladder wall thickening and gallbladder hydrops concerning for cholecystitis but with a normal common bile duct and MRCP, no evidence of choledocholithiasis. 2. Peripancreatic phlegmon in the left greater than right anterior pararenal space raises concern for pancreatitis and serologic correlation is recommended. Elvis Garcia, Physician Date Hx of Present Illness 41-year-old female with abdominal pain. Apparently sharp sudden onset yesterday after dinner. Right upper quadrant, ~ radiating to back. +N/V. ~ Fever. No Dysuria/hematria. ER- vss Hospital Course Hospital course- 41-year-old female admitted with abdominal pain. Pancreatitis positive. Cholelithiasis vs cholecystitis. MRCP negative. Underwent lap sagar under the care of Dr. Angeline Waite. Please see operative report for complete details. Postoperative hospital course has been uncomplicated, patient is tolerating diet and stable and fit for discharge. I do feel the patient may have a fluctuating fever and abdominal discomfort for the next 1 or 2 weeks. Should a fever or sepsis recur, may need repeat imaging for this possible phlegmon or peripancreatic fluid collection. We will see surgery in 1 week. A/P 1. Acute pancreatitis; stable. sp MRCP & lap chol. possible discharge home later today if stable and no fever. 2. Acute symptomatic cholelithiasis/cholecystitis 3. Anemia 4. Metabolic syndrome 5. Incomplete rbbb. No evidence of syncope/ symptoms; incidental. 6. Subclinical hyperthyroidism. 7. Peripancreatic Phlegmon? Discharge plan Appointment primary [address] Euceda 8 1 week Diet soft regular Activity no heavy lifting Allergies none CODE STATUS full Condition stable Barriers to discharge none Pending tests none Functional status: Awake alert agrees to plan of care Reason for admission abdominal pain New medications Zahl 10 one every 4-8 hours as needed Cipro 500 twice daily 5 days Flagyl 500 3 times daily 5 days Tylenol as needed Home Meds Active Scripts Ibuprofen* (Motrin*) 600 Mg Tab, 600 MG PO Q6H Y for PAIN AND OR ELEVATED TEMP, #30 TAB Prov:SUNNY TREJO MD 11/16/16 Primary Care Provider Not On Staff Doctor Pending Labs Laboratory Tests Test 01/24/17 17:15 01/25/17 05:23 01/25/17 05:53 01/25/17 10:02 Lipase 367U/L (23-300) 544U/L (23-300) White Blood Count 12.510^3/ul (4.8-10.8) Red Blood Count 3.6210^6/ul (4.20-5.40) Hemoglobin 9.3g/dl (12.0-16.0) Hematocrit 29.1% (37.0-47.0) Mean Corpuscular Volume 80.4fl (82.0-101.0) Mean Corpuscular Hemoglobin 25.7pg (29.0-33.0) Mean Corpuscular Hemoglobin Concent 32.0g/dl (32.0-37.0) Red Cell Distribution Width 16.6% (11.5-14.5) Platelet Count 37704^3/UL (140-415) Mean Platelet Volume 12.1fl (7.4-10.4) Neutrophils % 74.3% (39.0-77.0) Lymphocytes % 16.5% (15.0-51.0) Monocytes % 6.9% (0.0-11.0) Eosinophils % 1.5% (0.0-7.0) Basophils % 0.3% (0.0-2.0) Nucleated Red Blood Cells % 0.0/100WBC (0.0-0.0) Neutrophils # 9.310^3/ul (1.6-7.5) Lymphocytes # 2.110^3/ul (0.8-2.9) Monocytes # 0.910^3/ul (0.3-0.9) Eosinophils # 0.210^3/ul (0.0-0.5) Basophils # 0.010^3/ul (0.0-0.1) Nucleated Red Blood Cells # 0.010^3/ul (0.0-0.0) Prothrombin Time 14.9Sec (12.2-14.2) Prothrombin Time Ratio 1.2 INR International Normalized Ratio 1.16 Activated Partial Thromboplast Time 35.1Sec (25.0-35.0) Sodium Level 141mmol/L (135-144) Potassium Level 3.4mmol/L (3.5-5.1) Chloride Level 101mmol/L (97-110) Carbon Dioxide Level 27mmol/L (21-31) Anion Gap 16 (8-16) Blood Urea Nitrogen 6mg/dl (7-20) Creatinine 0.60mg/dl (0.44-1.00) Glucose Level 115mg/dl (70-220) Calcium Level 8.8mg/dl (8.4-10.2) Phosphorus Level 2.4mg/dl (2.5-4.9) Magnesium Level 2.2mg/dl (1.7-2.5) Total Bilirubin 0.3mg/dl (0.2-1.3) Direct Bilirubin 0.00mg/dl (0.00-0.20) Indirect Bilirubin 0.3mg/dl (0-1.1) Aspartate Amino Transf (AST/SGOT) 70IU/L (15-46) Alanine Aminotransferase (ALT/SGPT) 209IU/L (13-69) Alkaline Phosphatase 121IU/L (42-121) Total Protein 7.8g/dl (6.1-8.1) Albumin 4.3g/dl (3.3-4.9) Globulin 3.50g/dl (1.3-3.2) Albumin/Globulin Ratio 1.22 Serum HCG, Qualitative NEGATIVE (NEGATIVE) Bedside Glucose 154mg/dL (70-220) JESSICA GATES MD Jan 25, 2017 16:17
--- NOTE | 2017-01-25 16:20 | PDOCDIS ---
Discharge Instructions DIAGNOSIS Discharge Diagnosis Pancreatitis CONDITION Patient Condition: Stable HOME CARE INSTRUCTIONS: Special Diet: Soft to regular food. Stay hydrated at least 8 glasses of fluids per day ACTIVITY: Activity Restrictions: No Restrictions Avoid heavy lifting Activity Restrictions Comment: No heavy lifting. FOLLOW UP/APPOINTMENTS Follow-up Plan Appointment primary [address] Angeline Waite in 1 week JESSICA GATES MD Jan 25, 2017 16:20
[2017-01-25] MEDS ORDERED: ACET325T40 PO (16:22)
[2017-01-25] MEDS ORDERED: HYDR-3498 PO (16:22)
[2017-01-25] MEDS ORDERED: DOCU-216 PO (16:22)
[2017-01-26] MEDS ORDERED: ENOXAPARIN 40 MG/0.4 ML SYG SC SCH (09:00)
== END 2017-01-25 21:15 | disposition home or self-care (01) | DRG 417 ==
LOC: FTE 07:56 → PP2 13:57
PROVIDERS: ADMIT Hospitalist; ATTEND Hospitalist
PROC: 0FT44ZZ Resection of Gallbladder, Percutaneous Endoscopic Approach (ICD-10-PCS; principal; 2017-01-25 07:30)
DX: K80.00 Calculus of gallbladder with acute cholecystitis without obstruction (principal); K85.10 Biliary acute pancreatitis without necrosis or infection; E88.81 Metabolic syndrome and other insulin resistance; K82.1 Hydrops of gallbladder; K80.20 Calculus of gallbladder without cholecystitis without obstruction; D64.9 Anemia, unspecified; I45.10 Unspecified right bundle-branch block; E05.90 Thyrotoxicosis, unspecified without thyrotoxic crisis or storm; E66.01 Morbid (severe) obesity due to excess calories; Z68.37 Body mass index [BMI] 37.0-37.9, adult
CPT/HCPCS: 36415; 71010; 74181; 76705; 80053; 80061; 81001; 81003; 82962; 83036; 83540; 83615; 83690; 83735; 84100; 84439; 84443; 84480; 84702; 84703; 85025; 85610; 85730; 86704; 86709; 86803; 87340; 88304; 93005; 96374; 96375; 96376; J0295; J1100; J1650; J1885; J2250; J2270; J2405; J2543; J2795; J3010; J3480; J7030

== ENCOUNTER 2017-02-12 15:08 | Outpatient (CLI) | payer SELFPAY ==
[~2017-02-12] VITALS: Ht 157.5 cm; Wt 87.7 kg
[~2017-02-12 15:08] MED LIST changes: +ACET325T40 PO; +DOCU-216 PO; +HYDR-3498 PO
[2017-02-12 15:22] VITALS: BP 111/55; PULSE 91; RESP 16; Ht 157.5 cm; Wt 87.7 kg
--- NOTE | 2017-02-12 19:38 | PN ---
Date/Time of Note Date/Time of Note DATE: 02/12/17 TIME: 19:32 Assessment/Plan Assessment/Plan Assessment/Plan [facility] Progress Note Date of Service: 02/12/2017 Place of service: [facility] [place] Today's Assessment & Plan: Overall stable and doing well. No evidence for obvious postoperative complications or surgical site infections. No indication for acute surgical intervention. With above assessment, I've recommended the following for today: 1. Follow with primary care physician 2. Follow-up with us as needed 3. Aggressive change in lifestyle towards healthier living (spent 15 minutes in counseling reviewing ways to achieve this goal to bring BMI between 18-24) 4. Follow-up with us in a few months to assess whether the incidentally discovered ventral hernia between xiphoid process and the umbilicus needs further surgical attention Thank you again for your great care of this very pleasant patient and wonderful family. If there are any questions, please feel free to call me at [phone]. Nature of presenting problem: Moderate severity Please note that, given the limited number of diagnoses or management options, the limited amount and/or complexity of data needed to be reviewed, and moderate risk of complications and/or morbidity or mortality, this qualifies as low to moderate complexity type of decision-making. Disclaimer: Inadvertent spelling and grammatical errors are likely due to EHR/ dictation software use and do not reflect on the quality of delivered patient care. Also, please note that the electronic time recorded on this node does not necessarily reflect the actual time of the visit. Updated Clinical Summary: Very pleasant 41-year-old lady who presented to [facility] emergency department on 01/23/2017 with sharp onset abdominal pain of 1 day duration and clinical picture consistent with gallstone pancreatitis. Comorbidities: 1. Gallstone pancreatitis and possible early acute cholecystitis; s/p an otherwise uncomplicated laparoscopic cholecystectomy with findings of acute cholecystitis. We also discovered an incisional ventral hernia that was approximately 2 cm in greatest diameter located midway between subxiphoid midline and umbilicus 2. BMI 37.8 3. Metabolic syndrome 4. Previous history of pancreatitis (per patient's report) 5. Status post appendectomy 6. Status post tubal ligation 7. Kidney stones (reported once in the chart) 8. Anemia 9. Ventral incisional hernia (between umbilicus and subxiphoid area, approximately 2 cm in greatest diameter) Subjective: No major events or complaints since discharge home; no abd pain and no longer on pain medications; no n/v/d; no sob or cp; + flatus; + BM and normal; + activity Objective: Vitals: See below Exam: GENERAL: On exam, the patient was lying in bed and appeared to be comfortable and in no acute distress. ABDOMEN: Soft, nontender and nondistended. Incisions are clean, dry and intact without any evidence of erythema, edema, discharge, or hernia. There are no peritoneal signs or guarding. SKIN: Skin appears to be pink and feels warm to touch. NEUROLOGIC: Patient is awake, alert, and follows commands appropriately. Labs: See below Exam/Review of Systems Vital Signs Vitals Vital Signs Date Time Temp Pulse Resp B/P Pulse Ox O2 Delivery O2 Flow Rate FiO2 02/12/17 15:22 98.0 91 16 111/55 94 Room Air FLOR CASAS M.D. Feb 12, 2017 19:38
== END 2017-02-12 16:22 | disposition home or self-care (01) ==
LOC: HPC 15:08
PROVIDERS: ATTEND Transplant Surgery
DX: K85.90 Acute pancreatitis without necrosis or infection, unspecified (principal); D64.9 Anemia, unspecified; N20.0 Calculus of kidney; K43.9 Ventral hernia without obstruction or gangrene; E88.81 Metabolic syndrome and other insulin resistance
CPT/HCPCS: G0463

== ENCOUNTER 2018-06-26 15:30 | Emergency (ER) | END 2018-06-26 18:10 | disposition home or self-care (01) ==